=== PATIENT | female | born 1965 | race Caucasian/White ===

== ENCOUNTER 2016-10-14 15:34 | Emergency (ER) | payer BC ==
--- NOTE | ~2016-10-14 | EKG ---
PATIENT: OSIRIS JIMENEZ UNIT #: [id number] Ventricular Rate: 80 BPM Atrial Rate: 80 BPM P-R Interval: 190 ms QRS Duration: 76 ms Q-T Interval: 366 ms QTC Calculation(Bezet): 422 ms P Mica: 42 degrees Calculated R Mica: 37 degrees Calculated T Mica: 3 degrees Diagnosis Line: Normal sinus rhythm Diagnosis Line: Normal ECG Diagnosis Line: No previous ECGs available Diagnosis Line: Confirmed by KRISTA WHIPPLE MD ([id number]) on Diagnosis Line: 10/17/2016 9:01:34 AM INTERPRETING MD: SOLE LOJA
--- NOTE | ~2016-10-14 | CR72 ---
[facility] A Service of [facility] RADIOLOGY TEXT RESULTS PATIENT: OSIRIS JIMENEZ LOCATION: SED : 61 UNIT #: [id number] AGE: [address]: Gaston Abdullahi MD SEX: F ORDER DR: [id number] [address] [address] [id number] E MR#: [id number] Acc #: [id number] NAME: OSIRIS JIMENEZ. : 1965 SEX: F STUDY DATE/TIME: 10/14/2016 16:15 UNIT: SED ROOM: STUDY DESCRIPTION: CR Chest Single View Portable Attending Physician: Gaston Abdullahi M.D. Ordering Physician: Gaston Abdullahi M.D. MEDICAL IMAGING REPORT This report is preliminary unless electronic signature is present. EXAM Portable chest HISTORY Chest pain radiating left arm and shoulder for the past 4 days. Yard work injury. TECHNIQUE Single AP view of the chest was obtained. FINDINGS A single AP portable view of the chest shows both lungs to be clear. The heart is normal in size. The mediastinal contour is normal. No significant bone abnormalities are seen. IMPRESSION Normal portable chest. Dictated by... Yoel Roblero M.D. THIS IS AN ELECTRONICALLY VERIFIED REPORT Yoel Roblero M.D. at 10/15/2016 9:36 AM RLF/joshua TD: 10/14/2016 22:00 JOB #: [id number] MEDICAL IMAGING REPORT Page 1 of 1
[~2016-10-14 15:34] MED LIST: MOBIC PO
[2016-10-14 16:38] LABS: BASOPHIL% 0.6 % (0-2.5); EOSINOPHIL# 0.2 X10e3 (0-0.7); EOSINOPHIL% 2.4 % (0.0-7.0); HEMATOCRIT 41.4 % (35.0-45.0); LYMPHOCYTE# 2.1 X10e3 (1.0-3.5); LYMPHOCYTE% 33.1 % (17.0-45.0); MEAN CELL VOLUME 92.1 FL (83-96); MEAN CORPUSCULAR HEMOGLOBIN 31.1 PG (28-34); MEAN CORPUSCULAR HGB CONC 33.8 g/dL (30-36); MEAN PLATELET VOLUME 9.5 FL (6.5-11.5); MONOCYTE# 0.5 X10e3 (0-1.0); MONOCYTE% 7.3 % (3.0-12.0); NEUTROPHIL# 3.6 X10e3 (1.5-7.1); NEUTROPHIL% 56.6 % (40-75); PLATELET COUNT 188 X10e3 (140-420); RED CELL DISTRIBUTION WIDTH 13.4 % (11.0-15.5); WHITE BLOOD COUNT 6.4 X10e3 (4.0-10.5)
[2016-10-14 16:40] LABS: DIFF IND NO
[2016-10-14 16:55] LABS: BUN/CREATININE RATIO 21.42; CALCIUM SERUM 9.5 mg/dL (8.4-10.2); CREATININE SERUM 0.7 mg/dL (0.6-1.4); GLOM FILT RATE Estimated 98.9 mL/min (>60); POTASSIUM 3.9 mmol/L (3.5-5.1)
[2016-10-14 19:54] LABS: POC - CKMB 2.2 ng/mL (0.0-7.9); POC - TROPONIN <0.05 ng/mL (<=0.05)
== END 2016-10-14 17:33 | disposition home or self-care (01) ==
LOC: SED 15:34
PROVIDERS: Emergency Medicine
DX: M79.622 Pain in left upper arm (principal)
CPT/HCPCS: 36415; 71010; 80048; 82553; 84484; 85025; 93005; 99284